=== PATIENT | female | born 1940 | race Caucasian/White ===

== ENCOUNTER 2025-04-07 08:17 | Outpatient (REF) | payer OTHER, SELFPAY ==
--- NOTE | ~2025-04-07 | XR_ITS ---
CLINICAL HISTORY: M25.571 - Pain in right ankle and joints of right foot 3 view right ankle Comparison: None provided Findings: There is a distal fibular fracture. Ankle mortise intact. No significant loss of joint space, osteophytes, or erosions. No ankle effusion. No radiopaque foreign body. IMPRESSION: 1. Distal fibular fracture. This document has been electronically signed by: Rafael Quinones MD on 04/08/2025 08:56:50
--- OUTSIDE RECORDS SUMMARY | 2025-04-07 08:23 | XMS_ITS | Clinical Summary ---
Author Organization [address] [place] [address] Address [address] [place] [address] Phone Care Team Providers Care Service Mechanic Name Role Phone Ivone Gillespie MD Primary Care Provider [phone] Allergies Active Allergy Reactions Criticality Noted Date Comments Sulfa (Sulfonamide Antibiotics) 10/13/2012 Other Reaction(s): OTHER crystallized on her Medications apixaban (Eliquis) 5 mg tablet TAKE 1 TABLET (5 MG) BY MOUTH 2 TIMES DAILY. 4 Active timolol (TIMOPTIC) 0.5 % ophthalmic solution daily. 4 Active aspirin 81 mg EC tablet Take 1 tablet (81 mg total) by mouth 1 (one) time each day. Active CALCIUM CARBONATE ORAL Calcium Carb-Choleca lciferol (Calcium 500 +D) 500-10 MG-MCG Tab Take 1 Tablet by mouth 2 times daily. 2 Active nitroglycerin (NITROSTAT) 0.[address] 1 Tab under the tongue every 5 minutes as needed for Chest pain. 1 Active latanoprost (XALATAN) 0.005 % ophthalmic solution INT 1 GTT IN OU QD HS 0 Active brimonidine (ALPHAGAN) 0.2 % ophthalmic solution INSTILL 1 DROP IN BOTH EYES BID 0 Active valsartan (DIOVAN) 80 mg tabletIndicati ons:Unspecifie d systolic (congestive) heart failure (CMS/HCC V24, CMS/HCC V28) TAKE 1 TABLET BY MOUTH EVERY DAY 90 tablet 3 5 Active cholecalcifero l (VITAMIN D-3) 25 mcg (1,000 unit) tablet TAKE 1 TABLET BY MOUTH EVERY DAY 90 tablet 1 5 Active atorvastatin (LIPITOR) 80 mg tablet TAKE 1 TABLET BY MOUTH EVERY DAY 90 tablet 5 Active budesonide (ENTOCORT EC) 3 mg 24 hr capsule TAKE 3 CAPSULES BY MOUTH EVERY DAY FOR 1 MONTH,THEN 2 CAPSULES BY MOUTH DAILY FOR 1 MONTH,THEN 1 CAPSULE BY MOUTH DAILY FOR 1 MONTH 90 capsule 5 Active metoprolol succinate (TOPROL-XL) 50 mg 24 hr tablet TAKE 1 TABLET BY MOUTH EVERY DAY 90 tablet 3 5 Active metoprolol succinate (TOPROL-XL) 50 mg 24 hr tablet Take 1 tablet (50 mg total) by mouth 1 (one) time each day. 4 025 Discontinued Active Problems Problem Noted Date Diagnosed Date Osteopenia 03/15/2025 Diarrhea 08/31/2024 Glaucoma 08/31/2024 Overview (08/31/2024): both eyes, follows with Dr corona Hypertension 08/31/2024 Overview (08/31/2024): Last Assessment & Plan: Elevated today but reports good control at home-likely whitecoat phenomenon. For now continue current valsartan and metoprolol. Recent labs after increasing valsartan looked good. Assessment & Plan (11/06/2024 12:58 PM EST): Patient's blood pressure is well-controlled today. Continue on current medication regiment. Aortic stenosis 12/28/2022 Overview (08/31/2024): - See echo under HFrEF section Last Assessment & Plan: Still mild, surveillance echoes every 3 to 4 years or with change in murmur or exam Assessment & Plan (11/06/2024 12:58 PM EST): Can repeat echocardiogram in 1 year. Or if patient develops symptoms. HFrEF (heart failure with re duced ejection fraction) (CMS/HCC V24, CMS/HCC V28) 12/28/2022 Overview (08/31/2024): - Interestingly, serial echocardiograms leading up to her most recent outpatient 1 have always documented her as having mildly reduced to low normal ejection fractions -Interestingly her initial outpatient echocardiogram after her hospitalization in September 2022 actually showed an improvement in her ejection fraction in my opinion to 60 to 65% with mild, concentric hypertrophy with normal regional wall motion, normal RV size and systolic function with pacer wire seen in the right heart, mild AI, mild , normal pulmonary artery systolic pressure, moderate left atrial enlargement, no pericardial effusion- in [id number] comparison with the previous outpatient echo from 02/16/2021, I felt that her EF improved - Repeat echo during her next hospitalization at [facility] however suggested that her EF was still low normal at 40 to 45% -She was seen by heart failure service during her hospitalization at [facility] in September 2022-they did not feel her picture was consistent with myocarditis but rather that her mildly reduced EF may have been secondary to chronic RV pacing bringing up the possibility of BiV upgrade to her pacer - No doubt, there is probably some subjective variability in the readings - Recent follow-up echocardiogram on 10/07/2023 showed normal biventricular size and systolic function, normal left ventricular regional wall motion with an ejection fraction of 55 to 60%, paradoxic septal motion in keeping with RV pacemaker, mild biatrial enlargement, mild aortic stenosis with dimensionless index 0.39 and calculated aortic valve area of 1.5 cm , trace to mild aortic insufficiency, normal pulmonary artery systolic pressure-compared with prior echo from 11/06/2022, findings are unchanged Last Assessment & Plan: Continue surveillance echoes every 3 to 4 years or with change in symptoms. Assessment & Plan (11/06/2024 12:58 PM EST): Patient appears euvolemic on exam today. Can continue current medication regiment. Can look to update echocardiogram next year or if symptoms arise. Educated the patient on the importance of a low-sodium diet, to which she adheres to strictly. She is also going to start weighing herself every day. Asked her to call the office if she gains more than 2 pounds in a day or 5 pounds in a week. Orders: ECG 12 lead PVC's (premature ventricular contractions) 12/28 Overview (08/31/2024): -Most recent device check in January 2024 indicates PVC burden is less than 1% Last Assessment & Plan: Continue current metoprolol. Acute pericarditis 11/14/2022 Overview (08/31/2024): - Had a viral illness in September 2022 - It was complicated by sudden onset chest pain causing her to present at [facility] where she was hospitalized from 10/21/2022 to 10/27/2022 - She was found to have a moderate pericardial effusion with clinical evidence of hemodynamic compromise and had a pericardiocentesis with placement of a MAX drain for few days followed by removal; CRP on admission was 14.5 but improved with treatment with prednisone and colchicine (high-dose NSAIDs and aspirin were not used due to CKD); her BELIA screen was positive but at a higher titer so likely a nonspecific result, she did not have evidence of lupus anticoagulant and anticardiolipin antibodies were negative - Had a cardiac MRI to rule out myocardial inflammation-it showed mildly reduced LV systolic function with mild hypokinesis of the mid to distal inferolateral wall, with abnormal septal motion c/w PPM; normal RV size with midlly reduced systolic function; increased T2 signal/edema in the pericardium-suggestive of pericarditis -Her prednisone continued to be tapered as an She was rehospitalized at [facility] from 12/04/2022 12/07/2022 with symptoms of shortness of breath and excessive fatigue in addition to diarrhea-her colchicine was discontinued because of the diarrhea and she had a pharmacologic nuclear stress test after ruling out for acute coronary syndrome which showed an admixture of ischemia and infarct at the apical anterior and septal mckeon with normal ejection fraction of 66% Last Assessment & Plan: Ejection fraction has recovered and patient has no more symptoms. Myocardial infarction with n onobstructive coronary arteries (CMS/HCC V24, CMS/HCC V28) 11/14/2022 Overview (08/31/2024): -Had a myocardial infarction with normal coronary arteries that occurred in 2012 -cardiac cath showing minimal RCA and circumflex disease but 50% LAD lesion that was irregular with normal wall motion on echocardiogram for which she was managed medically. Peak troponins were 0.7 during this event -Subsequent pharmacologic nuclear stress test during her recent [facility] admission showed admixture of ischemia and infarct at the apical anterior and septal mckeon Last Assessment & Plan: Continue high-dose atorvastatin, baby aspirin Shoulder pain, bilateral 11/14/2022 Superior mesenteric artery atherosclerosis (CMS/ HCC V24) 11/14/2022 Paroxysmal atrial fibrillation (CMS/HCC V24, CMS /HCC V28) 06/08/2021 Overview (08/31/2024): -Discovered incidentally on a 30-day R OCT performed for a syncopal episode (detailed below) while on vacation in [place]; R OCT between January and February 2021 showed mostly sinus rhythm but one strip showing atrial fibrillation with a heart rate of 88 bpm with conversion to sinus rhythm within a minute, however there was also sinus pauses with escape junctional beat, 4-second pause occurring at 6:30 PM, patient symptoms correlated with sinus rhythm and isolated APCs; interestingly she was not symptomatic with the A. fib episode or the 4-second pause, overall PVC burden on this study was only 1.3% -Echocardiogram on 02/16/2021 showed moderately dilated left atrium, normal left ventricular cavity size, wall thickness with low normal systolic function and an ejection fraction of 50 to 55%, grossly normal RV size and systolic function, mild aortic insufficiency, mild mitral regurgitation, minimal dilation of the ascending aorta and aortic root at 3.7 and 3.8 cm, respectively -Started on Eliquis for CVA prophylaxis and rate controlled Last Assessment & Plan: Overall burden on most recent device check remains less than 1% without any prolonged episodes. At this point, continue increased dose of metoprolol 50 mg daily and Eliquis 5 twice daily. I reviewed that the red bump on her leg may just be continued healing of the previous injury. It is an unusual place for a large hematoma and it does not look like a large hematoma. It is not firm or tense and is not causing the patient much pain. There is minimal associated lower extremity edema. Along the same vein, I do not believe this is a blood clot given that she is on therapeutic Eliquis without missed doses. That said, I asked her to keep me posted about her leg and let me know if the bump or swelling gets worse at which point we would consider imaging. In the meantime, I encouraged her to continue icing it and elevating it. She does not observe a high sodium diet which also helps. Assessment & Plan (11/06/2024 12:58 PM EST): Patient continues to utilize Eliquis with no abnormal bleeding. Rate controlled with metoprolol. She has a PMD4NT0-WANo score of a 6. Should remain anticoagulated. CKD (chronic kidney disease) stage 3, GFR 30-59 ml/min ([facility] V24, [facility] V28) 07/19/2015 Hyperlipidemia 12/18/2012 Overview (08/31/2024): Last Assessment & Plan: Controlled with LDL of 70, continue current medication. Assessment & Plan (11/06/2024 12:58 PM EST): Patient's most recent LDL at target. Continue current medication regimen of high-dose atorvastatin 80 mg p.o. daily. Lichen sclerosus et atrophicus of the vulva 08/31 Vitamin D deficiency 05/26/2012 Encounters Date Type Department Care Team Description 03/29/2025 Telephone Adult Medicine [place] - [address] [phone] Ivone Gillespie MD Foot Injury 03/18/2025 Telephone [facility] - [facility] [address] [facility] [address] [place] [address] Morena Chavez MA Results (Lab results) 03/15/2025 9:15 AM EDT Lab Draw Station - [address] Vitamin D deficiency; Osteopenia, unspecified location; HFrEF (heart failure with reduced ejection fraction) ([facility] V24, [facility] V28) 03/15/2025 8:30 AM EDT - 03/15/2025 11:59 PM EDT Hospital Encounter XRAY - [address] [phone] Closed fracture of distal end of right fibula, unspecified fracture morphology, initial encounter; Osteoporosis, unspecified osteoporosis type, unspecified pathological fracture presence Discharge Disposition: Home or Self Care 03/15/2025 8:00 AM EDT Office Visit Adult Medicine [address] [address] Liset Fajardo PA Closed fracture of distal end of right fibula, unspecified fracture morphology, initial encounter (Primary Dx); Vitamin D deficiency; Osteopenia, unspecified location; Hypertension, unspecified type; Hyperlipidemia, unspecified hyperlipidemia type; Paroxysmal atrial fibrillation ([facility] V24, [facility] V28); Stage 3 chronic kidney disease, unspecified whether stage 3a or 3b CKD ([facility] V24, [facility] V28) 02/17/2025 2:30 PM EDT Ancillary Procedure [facility] - [facility] [address] [facility] [address] [place] [address] from Last 3 Months Immunizations Name Administration Dates Next Due Influenza Quadravalent, 0.5m l (Fluad) 65yo and older 06/17/2023 Influenza Quadravalent, 0.5m l (Fluzone High-dose) 65yo and older 08/06/2022,06/30/2021 Influenza Quadrivalent, 0.5m l, preservative free (Fluarix; FluLaval; Fluzone) ages 6mo and older (Afluria) 3yo and older 07/05/2020 Influenza trivalent, 0.5mL ( Fluzone High-dose) 65yo and older 06/03/2024,06/24/2019,06/05/2018,06/25,06/22/2016 Influenza trivalent, with pr eservative (Fluzone; Afluria) 6mo and older 08/11/2015,11/15/2014,08/11/2013,10/08 Influenza, Unspecified 08/13/2022,06/22/2016,05/2013 Pneumococcal conjugate 13 va lent (Prevnar 13, PCV13) 2mo and older 07/05/2020,06/24/2019,08/19/2015 Pneumococcal polysaccharide 23 valent (Pneumovax 23) 2yo and older 12/27/2016 RSV, bivalent, protein subun it RSVpreF, 0.5mL, Preservative Free (Arexvy) 60yo and older 07/27/2024 Tdap Tetanus diptheria acell ular pertussis (Boostrix; Adacel) 7yo and older 05/12/2016,05/26/2012 Zoster Live 12/14/2013 Zoster recombinant (Shingrix ) 19yo and older 08/29/2019 Surgical History Surgery Date Site/Laterality Comments EYE SURGERY Bilateral PROCEDURE: MT TRABECULOPLASTY BY LASER SURGERY; COMMENT: right side once, left side 3x EYE SURGERY 02/2020 Left PROCEDURE: HISTORICAL EYE SURGERY; COMMENT: Dr. Gross COLONOSCOPY PROCEDURE: HISTORICAL COLONOSCOPY Medical History Medical History Date Comments Hypertension DX:Hypertension; COMMENT: for 10 years Glaucoma DX:Glaucoma; COM MENT: both eyes, follows with Dr Gross Herpes zoster DX:Herpes zoster Chronic cough 05/26/2012 DX:Chronic cough Vitamin D deficiency 05/26/2012 DX:Vitamin D deficiency Old KS (myocardial infarction) 05/11/2013 D X:Old KS (myocardial infarction); COMMENT: 12/09/12 NSTEMI [facility]. Cath - 50% LAD lesion, no culprit lesion identified. Plavix x 8 mo recommended Lichen sclerosus et atrophic us of the vulva 09/24/2012 DX:Lichen sclerosus et atrop hicus of the vulva Hyperlipidemia 12/18/2012 DX:Hyperlipidemi a CKD (chronic kidney disease) stage 3, GFR 30-59 ml/min (CMS/HCC V24, CMS/HCC V28) 07/19/2015 DX:CKD (chronic kidney disea se) stage 3, GFR 30-59 ml/min ([facility]) Diarrhea DX:Diarrhea Bradycardia DX:Bradycardia Anxiety state DX:Anxiety state Pericarditis DX:Pericarditis Irritable bowel syndrome DX:Irri table bowel syndrome Pacemaker DX:Pacemaker Microscopic colitis DX:Microscop ic colitis Tubular adenoma of colon DX:Tubu lar adenoma of colon Diverticulosis DX:Diverticulosi s Family History Medical History Relation Name Comments Heart attack Brother Bruce No Known Problems Daughter 1 No Known Problems Daughter 2 No Known Problems Daughter 3 Other: pacemaker/?broken heart Father Diabetes Mother Heart attack Mother Parkinson's Disease Sister 1 Carlene Heart attack Sister 2 Melba No Known Problems Son Breast cancer Neg Hx Relation Name Status Comments Brother Bruce Daughter 1 Alive Daughter 2 Alive Daughter 3 Alive Father Mother Sister 1 Carlene Sister 2 Melba Son Alive Social History Tobacco Use Types Packs/Day Years Used Date Smoking Tobacco: Former Cigarettes Q uit: 09/30/1978 Smokeless Tobacco: Never Tobacco Cessation:Counseling Given: Not Answered Alcohol Use Standard Drinks/Week Comments Yes 20 (1 standard drink = 0.6 oz pu re alcohol) Comments Unknown Sex and Gender Information Value Date Recorded Sex Assigned at Not on file Legal Sex Female 9:59 PM EST Gender Identity Not on file Sexual Orientation Not on file Obstetrics History Last Filed Vital Signs Vital Sign Reading Time Taken Comments Blood Pressure 134/72 03/15/2025 7:55 AM EDT Pulse 80 03/15/2025 7:55 AM EDT Temperature 35.8 C (96.5 F) 03/15/2025 7:55 AM EDT Respiratory Rate 12 03/15/2025 7:55 AM EDT Oxygen Saturation 97% 11/06/2024 11:14 AM EST Inhaled Oxygen Concentration - - Weight 63 kg (139 lb) 03/15/2025 7:55 AM EDT Height 162.6 cm (5' 4 ) 03/15/2025 7:55 AM EDT Body Mass Index 23.86 03/15/2025 7:55 AM EDT Plan of Treatment Upcoming Encounters Date Type Department Care Team (Late st Contact Info) Description 04/27/2025 7:40 AM EDT Appointment Radiology Department [address] [phone] 05/03/2025 1:20 PM EDT Office Visit Gastroenterology - [place] [address] [facility] 175 [facility] [address] [place] [phone] Antonietta Ge, TIANNA 175 [facility] [address] [place] [address] 05/04/2025 1:00 PM EDT Ancillary Procedure [facility] - [facility] [address] [facility] [address] [place] [address] 05/21/2025 10:40 AM EDT Office Visit [facility] - [facility] [address] [place] [address] Jian Mccormack, TIANNA [address] [place] [address] 09/07/2025 10:00 AM EST Office Visit Adult Medicine [facility] [place] [address] [place] [address] Ivone Gillespie MD [address] [place] [id number] Health Maintenance Due Date Last Done Comments Zoster Vaccines (2 of 2) 10/24/2019 08/29/2019, 11/28 Depression Screening 09/08/2022 Falls Risk Assessment 09/08/2022 Medicare Annual Wellness Visit 09/08/2022 Social Influencers of Health Screening 09/08/2022 COVID-19 Vaccine (7 - Pfizer risk season) 2025 07/07/2024, 07/02/2023, 05/03/2022, Additional history exists Influenza Vaccine (#1) 2025 , 06/17/2023, 08/13/2022, Additional history exists Hypertension/CHF/CAD Annual BMP Blood Test 03/15/2026 03/15/2025, 11/23/2024, 06/03/2024, Additional history exists DTaP,Tdap,and Td Vaccines (3 - Td or Tdap) 05/12/2026 05/12/2016, 05/26/2012 Cholesterol Screening (Lipid Panel) 06/03/2029 06/03/2024, 06/03/2024 Osteoporosis Screening (Bone Density Screening) 04/23/2033 04/23/2023, 09/16/2019, 01/07/2017 Pneumococcal Vaccine: 50+ Years Completed 07/05/2020, 06/24/2019, 12/27/2016, Additional history exists RSV Immunization Adult Patients Completed 07/27/2024 HIB Vaccines Aged Out No longer eligi ble based on patient's age to complete this topic HPV Vaccines Aged Out No longer eligi ble based on patient's age to complete this topic Hepatitis A Vaccines Aged Out No long er eligible based on patient's age to complete this topic Hepatitis B Vaccines Aged Out No long er eligible based on patient's age to complete this topic IPV Vaccines Aged Out No longer eligi ble based on patient's age to complete this topic MMR Vaccines Aged Out No longer eligi ble based on patient's age to complete this topic Meningococcal ACWY Vaccine Aged Out N o longer eligible based on patient's age to complete this topic Meningococcal B Vaccine Aged Out No l onger eligible based on patient's age to complete this topic RSV Immunization Patients Under 20 months Aged Out No longer eligible based on patient's age to complete this topic Varicella Vaccines Aged Out No longer eligible based on patient's age to complete this topic Medical Devices Implanted Type Area Carbide Tool Die Maker Device Identifier Shelf Expiration Date Model / Serial / Lot Abbstefani-Edmund 2272 Assurity Mri(Tm) [id number] Implanted: (Quantity not on file) Cardiac Pacemaker [employer]- [employer] 2272 ASSURITY MRI(TM) / [id number] / Procedures Procedure Name Priority Date/Time Associated Diagnosis Comments BASIC METABOLIC PANEL Routine 03/15/2025 9:15 AM EDT HFrEF (heart failure with reduced ejection fraction) (CMS/HCC V24, CMS/HCC V28) VITAMIN D 25 HYDROXY Routine 03/15/2025 9:15 AM EDT Vitamin D deficiency Osteopenia, unspecified location XR TIBIA FIBULA 2 VIEWS RIGHT Routine 03/15/2025 9:11 AM EDT Closed fracture of distal end of right fibula, unspecified fracture morphology, initial encounter Osteoporosis, unspecified osteoporosis type, unspecified pathological fracture presence CARDIAC DEVICE CHECK- REMOTE- MURJ Routine 02/17/2025 2:29 PM EDT LIPID PANEL Routine 06/03/2024 DXA BONE DENSITY STUDY 1+ SITS AXIAL SKEL Routine 04/23/2023 9:32 AM EDT Other specified disorders of bone density and structure, unspecified site Encounter for general adult medical examination without abnormal findings from Last 3 Months or Most Recently Relevant to Health Maintenance Results * Vitamin D 25 hydroxy (03/15/2025 9:15 AM EDT) [facility] Vit D, 25-Hydroxy 36.4 30.0 - 80.0 ng/mL LAB CHEMISTRY METHOD 03/15/2025 2:25 PM EDT [facility] Blood Venous blood specimen / Unknown Venipuncture / Unknown 03/15/2025 9:15 AM EDT 03/15/2025 9:15 AM EDT us Liset [facility] LAB BLOOD ORDERABLES Final Res ult [facility] [address] [place] [address], [place] [phone] * (ABNORMAL) Basic metabolic panel (03/15/2025 9:15 AM EDT) [facility] Sodium 135 133 - 145 mmol/L LAB CHEMISTRY METHOD [facility] Potassium 4.3 3.5 - 5.5 mmol/L LAB CHEMISTRY METHOD 03/15/2025 3:01 PM [facility] Chloride 104 96 - 110 mmol/L LAB CHEMISTRY METHOD 03/15/2025 3:01 PM [facility] CO2 25 21 - 32 mmol/L LAB CHEMISTRY METHOD 03/15/2025 3:01 PM [facility] Anion Gap 6 3 - 11 LAB CHEMISTRY METHOD 03/15/2025 3:01 PM [facility] Glucose 113(H) 70 - 100 mg/dL LAB CHEMISTRY METHOD 03/15/2025 3:01 PM [facility] BUN 23 5 - 25 mg/dL LAB CHEMISTRY METHOD 03/15/2025 3:01 PM [facility] Creatinine 1.10 0.50 - 1.10 mg/dL LAB CHEMISTRY METHOD 03/15/2025 3:01 PM EDT [facility] eGFR 49(L) >=60 mL/min/1. 73m2 LAB CHEMISTRY METHOD 03/15/2025 3:01 PM EDT [facility] Comment:Calculation based on the Chronic Kidney Disease Epidemiology Collaboration (CKD-EPI) equation refit without adjustment for race. BUN/Creatinine Ratio 20.9 LAB CHEMISTRY METHOD 03/15/2025 3:01 PM EDT [facility] Calcium 10.0 8.5 - 10.5 mg/dL LAB CHEMISTRY METHOD 03/15/2025 3:01 PM EDT [facility] Blood Venous blood specimen / Unknown Venipuncture / Unknown 03/15/2025 9:15 AM EDT 03/15/2025 9:15 AM EDT us Jian Mccormack SIDE PANEL [employer] LAB BLOOD ORDERABLES Final Resul t [facility] [address] [place] [address], * XR Tibia Fibula 2 Views Right (03/15/2025 9:11 AM EDT) Anatomical Region Laterality Modality Lower Extremities, Lower Leg Right Rad iographic Imaging 03/22/2025 9:11 AM EDT Impressions 03/22/2025 9:25 AM EDT Chronic fracture of the lateral malleolus previously described to be a Kearns type B fracture. -------- FINAL REPORT -------- Dictated By: Sheri Cardenas Dictated Date: 03/22/2025 09:11 ET Assigned Physician: Sheri Cardenas Reviewed and Electronically Signed By: Sheri Cardenas Signed Date: 03/22/2025 09:25 ET Workstation ID: [id number] Transcribed By: Self Edit Transcribed Date: 03/22/2025 09:11 ET Narrative 03/22/2025 9:25 AM EDT HISTORY: fracture TECHNIQUE: 4 radiographs of the right tibial and fibula COMPARISON: Lower leg examination from 02/26/2025 FINDINGS: There is a chronic fracture of the lateral malleolus and previously described to be a Kearns type B fracture. The fracture site extends to the lateral clear space. The talar dome is grossly intact. There is enthesopathy of the calcaneus. Procedure Note Sheri Cardenas MD - 03/22/2025 HISTORY: fracture TECHNIQUE: 4 radiographs of the right tibial and fibula COMPARISON: Lower leg examination from 02/26/2025 FINDINGS: There is a chronic fracture of the lateral malleolus and previouslydescribed to be a Kearns type B fracture. The fracture site extends to thelateral clear space. The talar dome is grossly intact. There isenthesopathy of the calcaneus. IMPRESSION: Chronic fracture of the lateral malleolus previously described to be aWeber type B fracture. -------- FINAL REPORT -------- Dictated By: Sheri Cardenas Dictated Date: 03/22/2025 09:11 ET Assigned Physician: Sheri Cardenas Reviewed and Electronically Signed By: Sheri Cardenas Signed Date: 03/22/2025 09:25 ET Workstation ID: [id number] Transcribed By: Self Edit Transcribed Date: 03/22/2025 09:11 ET Liset CHAMBERS IMG XR PROCEDURES Final Result * Cardiac device check - Remote- MURJ (02/17/2025 2:29 PM EDT) Date Time Interrogation Session [id number] CV DEVICE CHECK Type Interrogation Session Remote Scheduled CV DEVICE CHECK Implantable Pulse Generator Carbide Tool Die Maker [place] CV DEVICE CHECK Implantable Pulse Generator Type IPG CV DEVICE CHECK Implantable Pulse Generator Model 2272 Assurity MRI(TM) CV DEVICE CHECK Implantable Pulse Generator Serial Number [id number] CV DEVICE CHECK Implantable Pulse Generator Implant Date [id number] CV DEVICE CHECK Battery Remaining Percentage 55.00 CV DEVICE CHECK Battery Remaining Longevity 69.0 CV DEVICE CHECK Battery Voltage 2.990 CV D EVICE CHECK Battery FIELD SERVICES MANAGER Trigger 2.600 CV DEVICE CHECK Battery Status Middle of Service CV DEVICE CHECK Campos Statistic RA Percent Paced 48.00 CV DEVICE CHECK Campos Statistic RV Percent Paced 11.00 CV DEVICE CHECK Atrial Tachy Statistic AT/AF [place] Percent 1.00 CV DEVICE CHECK Lead Channel Sensing Intrinsic Amplitude 1.300 CV DEVICE CHECK Lead Channel Setting Sensing Sensitivity 0.30 CV DEVICE CHECK Lead Channel Impedance Value 350 CV DEVICE CHECK Lead Channel Pacing Threshold Amplitude 0.625 CV DEVICE CHECK Lead Channel Pacing Threshold Pulse Width 0.4 CV DEVICE CHECK Lead Channel RA Pacing Threshold Date 2025-02-02 CV DEVICE CHECK Lead Channel Setting Pacing Amplitude 1.625 CV DEVICE CHECK Lead Channel Setting Pacing Pulse Width 0.4 CV DEVICE CHECK Lead Channel Sensing Intrinsic Amplitude 12.000 CV DEVICE CHECK Lead Channel Setting Sensing Sensitivity 0.50 CV DEVICE CHECK Lead Channel Impedance Value 490 CV DEVICE CHECK Lead Channel Pacing Threshold Amplitude 0.875 CV DEVICE CHECK Lead Channel Pacing Threshold Pulse Width 0.4 CV DEVICE CHECK Lead Channel RV Pacing Threshold Date 2025-02-02 CV DEVICE CHECK Lead Channel Setting Pacing Amplitude 1.125 CV DEVICE CHECK Lead Channel Setting Pacing Pulse Width 0.4 CV DEVICE CHECK Campos Setting Mode (NBG Code) DDDR CV DEVICE CHECK Campos Setting Lower Rate Limit 60 CV DEVICE CHECK Campos Setting AT Mode Switch Rate 150 CV DEVICE CHECK Campos Setting Maximum Tracking Rate 120 CV DEVICE CHECK Campos Setting Maximum Sensor Rate 115 CV DEVICE CHECK Campos Setting PAV Delay 300 CV DEVICE CHECK Campos Setting WALTER Delay 250 CV DEVICE CHECK Date of Service 2025-02-17 CV DEVICE CHECK Anatomical Region Laterality Modality Device Interroga tion 02/02/2025 2:00 AM EDT Impressions 02/17/2025 2:27 PM EDT Tachycardia: AT * Stored EGMs are consistent with or suggestive of Atrial Tachycardia * AT [place]: 1% * Total number of episodes: 2 / Longest 14 seconds Normal Remote: With Events * Normal Device Function * Events or Alerts: 1 False AMS / Oversensing. * Battery: Battery is at 55%, 5.75 yrs * Sensing, impedance and thresholds reviewed * Programmed parameters reviewed * Presenting rhythm reviewed * Heart Rate Histograms reviewed Narrative Procedure Note Vicente Jones MD - 02/17/2025 IMPRESSION: Tachycardia: AT * Stored EGMs are consistent with or suggestive of Atrial Tachycardia * AT [place]: 1% * Total number of episodes: 2 / Longest 14 seconds Normal Remote: With Events * Normal Device Function * Events or Alerts: 1 False AMS / Oversensing. * Battery: Battery is at 55%, 5.75 yrs * Sensing, impedance and thresholds reviewed * Programmed parameters reviewed * Presenting rhythm reviewed * Heart Rate Histograms reviewed Vicente Jones MD CV IMPLANTABLE CARDIAC DEV ICE PROCEDURES Final Result * Lipid panel (06/03/2024) LDL/HDL Ratio 2 0 - 4 Triglycerides 79 0 - 150 mg/dL Cholesterol 170 0 - 200 mg/dL HDL 97 >=40 mg/dL LDL Cholesterol 58 0 - 100 mg/dL Blood Venous blood specimen / Unknown Historical Provider LAB BLOOD ORDERABLES Tricia l Result * DXA BONE DENSITY STUDY 1+ SITS AXIAL SKEL (04/23/2023 9:32 AM EDT) Anatomical Region Laterality Modality Bone Densitometr y 09/10/2022 2:56 PM EST Narrative 04/23/2023 2:23 PM EDT BONE DENSITY (DEXA) Lumbar Spine T-score is -0.2. (SD relative to 20-29 y/o adult) Z-score is 2.7. (SD relative to age matched peers) This is considered normal by WHO criteria. Left Hip T-score is -1.9. Z-score is 0.6. This is considered osteopenia by WHO criteria. Lateral view of the spine demonstrates vertebral heights to be maintained. IMPRESSION: This patient is considered to have osteopenia by WHO criteria. This patient has a 15% risk of major osteoporotic fracture and a 4.6% risk of hip fracture over the next 10 years. (World Health Organization Fracture Risk Assessment) [facility] Department of Internal Medicine recommends using National Osteoporosis Foundation (NOF) guidelines in treatment decisions related to osteoporosis. NOF guidelines suggest considering treatment for postmenopausal women and men aged 50 or older presenting with the following: History of hip or vertebral fracture. T-score = -2.5 (DXA) at the femoral neck, total hip, or spine, after appropriate evaluation to exclude secondary causes. Low bone mass (T-score between -1.0 and -2.5 at the femoral neck or spine) AND a 10-year probability of a hip fracture = 3% OR a 10-year probability of a major osteoporosis-related fracture = 20% based on the [place]-adapted WHO algorithm Please note that all treatment decisions require clinical judgment and consideration of individual patient factors, including patient preferences, co-morbidities, previous drug use, risk factors not captured in the FRAX model (e.g., frailty, falls, vitamin D deficiency, increased bone turnover, interval significant decline in bone density) and possible under- or over-estimation of fracture risk by FRAX. Optional alternative screening schedule based on arsen Giron al., [facility] October 18, 2011 for patients with osteopenia (based on hip BMD T-score) is as follows: * advanced osteopenia (T scores -2.00 to -2.49), BMD testing every year * moderate osteopenia (T scores -1.50 to -1.99), BMD testing every 5 years mild osteopenia or normal BMD (T scores -1.50 and higher), BMD testing every 15 years Procedure Note Patricia Chao MD - 11/05/2023 BONE DENSITY (DEXA) Lumbar Spine T-score is -0.2. (SD relative to 20-29 y/o adult) Z-score is 2.7. (SD relative to age matched peers) This is considered normal by WHO criteria. Left Hip T-score is -1.9. Z-score is 0.6. This is considered osteopenia by WHO criteria. Lateral view of the spine demonstrates vertebral heights to bemaintained. IMPRESSION: This patient is considered to have osteopenia by WHO criteria. Thispatient has a 15% risk of major osteoporotic fracture and a 4.6% risk of hip fracture over the next10 years. (World Health Organization Fracture Risk Assessment) [facility] Department of Internal Medicinerecommends using National Osteoporosis Foundation (NOF) guidelines in treatment decisionsrelated to osteoporosis. NOF guidelines suggest considering treatment forpostmenopausal women and men aged 50 or older presenting with the following: History of hip or vertebral fracture. T-score = -2.5 (DXA) at the femoral neck, total hip, or spine, afterappropriate evaluation to exclude secondary causes. Low bone mass (T-score between -1.0 and -2.5 at the femoral neck or spine)AND a 10-year probability of a hip fracture = 3% OR a 10-year probability of a majorosteoporosis-related fracture = 20% based on the [place]-adapted WHO algorithm Please note that all treatment decisions require clinical judgment andconsideration of individual patient factors, including patient preferences, co- morbidities,previous drug use, risk factors not captured in the FRAX model (e.g., frailty, falls, vitaminD deficiency, increased bone turnover, interval significant decline in bone density) andpossible under- or over-estimation of fracture risk by FRAX. Optional alternative screening schedule based on arsen [facility]iron al., [facility] for patients with osteopenia (based on hip BMD T-score) is as follows: * advanced osteopenia (T scores -2.00 to -2.49), BMD testing every year * moderate osteopenia (T scores -1.50 to -1.99), BMD testing every 5years mild osteopenia or normal BMD (T scores -1.50 and higher), BMD testingevery 15 years King Rae MD [facility] [place]XA PROCEDURES Final Re sult from Last 3 Months or Most Recently Relevant to Health Maintenance Insurance [id number] [place] [address] [employer] Care Teams Service Mechanic Relationship Specialty Start Date End Date Ivone Gillespie MD [address] [place] [address] PCP - General Internal Medicine 10/29/24
== END 2025-04-07 08:18 | disposition home or self-care (01) ==
LOC: HO.HOSX 08:17
PROVIDERS: Visit Provider Physician Assistant
DX: S82.891D Other fracture of right lower leg, subsequent encounter for closed fracture with routine healing (principal); M25.571 Pain in right ankle and joints of right foot; M25.471 Effusion, right ankle; W19.XXXD Unspecified fall, subsequent encounter
CPT/HCPCS: 73610

== ENCOUNTER 2025-04-07 09:46 | Outpatient (AMB) | payer OTHER, SELFPAY ==
--- NOTE | 2025-04-07 10:11 | MHC.OFFVIS ---
Intake Visit Reasons: COUNTER INTELLIGENCE-closed fx of distal end of rt fibula Intake Note: Susan is an 84 year old female who presents today as a new patient for a an evaluation of right fibula fracture. Patient was seen at [facility] about a week after she got up from falling asleep in a sitting position, she did not realize her foot fell asleep upon getting up, resulting with an ankle injury that happened five to six weeks ago. Patient had x-rays and was placed in a short walking boot. She followed up with PCP and was referred to orthopedics. Patient reports no physical therapy, no injections. Patient states that no numbness or tingling to report, no pain radiating up/down the leg. Medication List - Last Reconciled 04/07/25 by Trini Hutchison PA-C Unobtainable HPI HPI COUNTER INTELLIGENCE-closed fx of distal end of rt fibula: Details: 84 yo female presents to the office today for right ankle fracture from approx 6 weeks ago. She has been using walking boot wbat. She states she has been walking without the boot and has no pain. She ambulates at baseline without a walker or cane. Review of Systems Const All systems reviewed & are unremarkable except as noted in HPI and below Physical Exam Const General: cooperative and no acute distress Orientation/consciousness: patient oriented x3 Resp Effort & Inspection: normal respiratory effort and able to speak in complete sentences Cardio Peripheral pulses: Peripheral pulses 2+ throughout Neuro General: patient oriented x3 Extrem Other: Right ankle normal to inspection, trace swelling over the lateral malleolus. No pain along the medial or lateral side of the ankle. No pain along the syndesmosis. Full ROm , no laxity. NVI. Results Reviewed Results Reviewed: Xrays were obtained in the office today and personally reviewed by me of the left ankle show healing, stable distal fibular fracture with ankle mortise intact. Assessment & Plan Assessment & Plan (1) Closed right ankle fracture: Code(s): S82.891A - Other fracture of right lower leg, initial encounter for closed fracture Category: Medical Plan: She will d/c the use of the walking boot and transition to a lace up aso which was provided today. I did offer PT which she declined. She will increase activities as tolerated and see us back if symptoms arise. Orders: Orders XR ankle RT min 3V Today M25.571 - Pain in right ankle and joints of right foot Coding Level of Care Code New Pt Level 3 (10950) Complex EM visit Add On G2211 Diagnoses Closed right ankle fracture S82.895C
== END 2025-04-07 11:02 | disposition home or self-care (01) ==
LOC: HO.HOS 09:47
PROVIDERS: PCP Internal Medicine; Visit Provider Physician Assistant
DX: S82.891A Other fracture of right lower leg, initial encounter for closed fracture (principal)
CPT/HCPCS: 99203; G2211

== ENCOUNTER → 2025-04-07 09:48 | Outpatient (BNV) | payer OTHER, SELFPAY | PROVIDERS: Visit Provider Specialist | DX: S82.831A Other fracture of upper and lower end of right fibula, initial encounter for closed fracture (principal) | CPT/HCPCS: 73610 ==